=== PATIENT | female | born 1965 ===

== ENCOUNTER 2016-12-14 14:06 | Emergency (ER) | payer MEDICAID ==
[2016-12-14 14:06] VITALS: BMI 34.2
[2016-12-14 14:33] VITALS: BP 124/77; PULSE 85; RESP 16; TEMP 98.2; O2SAT 100
[2016-12-14] MEDS ORDERED: Albuterol-Ipratrop 3 mg / 0.5 (3 ml) UD INH STA (15:01)
--- NOTE | 2016-12-14 15:09 | ED PDOC ---
HPI: CCC, URI, Sore Throat Time Seen by Provider: 12/14/16 15:00 Chief Complaint (Nursing): Cough, Cold, Congestion Chief Complaint (Provider): Cough, Cold, Congestion History Per: Patient History/Exam Limitations: no limitations Onset/Duration Of Symptoms: Days Current Symptoms Are (Timing): Still Present Location Of Pain: None Sick Contacts (Context): None Associated Symptoms: Cough Ear Symptoms: Bilateral: None Severity: Moderate Additional Complaint(s): Patient is a 51 year old female who presents to ED for evaluation of a consistent cough and unrelieved allergy symptoms. Patient notes a chronic history of allergies, taking medication without relief. Also notes history of asthma, but has not had access to her inhaler due to housing complication. Reports that she has been treated for this cough in the past with Promethazine and codeine. Denies chest pain, palpation, fever or neck pain. PMD: Dr. Sargent Past Medical History Reviewed: Historical Data, Nursing Documentation, Vital Signs Vital Signs: Last Vital Signs Temp 98.2 F 12/14/16 14:30 Pulse 85 12/14/16 14:30 Resp 16 12/14/16 14:30 BP 124/77 12/14/16 14:30 Pulse Ox 100 12/14/16 15:30 - Medical History PMH: Anxiety, Asthma (never hospitalized), Back Problems (bulging disc), Bipolar Disorder, Depression, Fractures (right ankle), Gastritis Denies: Diabetes, Hepatitis, Sexually Transmitted Disease - Surgical History Surgical History: Endoscopy - Family History Family History: States: Unknown Family Hx - Social History Current smoker - smoking cessation education provided: Yes - Immunization History Hx Tetanus Toxoid Vaccination: No Hx Influenza Vaccination: No Hx Pneumococcal Vaccination: No - Home Medications Home Medications: Ambulatory Orders Medication Instructions Recorded Alprazolam [Xanax] 0.5 mg PO DAILY PRN 06/04/16 QUEtiapine [SEROquel] 300 mg PO HS 06/04/16 Albuterol HFA [Ventolin HFA 90 1 puff IH QID PRN #1 puff 10/05/16 mcg/actuation (8 g)] Divalproex [Depakote ER] 500 mg PO BID 10/05/16 predniSONE [predniSONE Tab] 1 tab PO DAILY 11/29/16 traMADol [Ultram] 50 mg PO Q8 PRN #10 tab 11/29/16 valACYclovir [Valtrex] 1 tab PO Q8 11/29/16 Albuterol HFA [Ventolin HFA 90 2 puff IH [id number] PRN #1 inh 12/14/16 mcg/actuation (8 g)] Cetirizine HCl [Zyrtec] 10 mg PO DAILY #15 capsule 12/14/16 Fluticasone Propionate [Flonase] 2 spr IN DAILY #1 bottle 12/14/16 Promethazine/Codeine 5 ml PO Q12 PRN #100 ml 12/14/16 [Phenergan/Codeine Oral Syrup] - Allergies Allergies/Adverse Reactions: Allergies Allergy/AdvReac Type Severity Reaction Status Date / Time No Known Allergies Allergy Verified 12/14/16 14:30 Physical Exam - Reviewed Nursing Documentation Reviewed: Yes Vital Signs Reviewed: Yes - Physical Exam Appears: Positive for: Non-toxic, No Acute Distress Skin: Positive for: Normal Color, Warm Eye Exam: Positive for: Normal appearance Neck: Positive for: Normal, Painless ROM Cardiovascular/Chest: Positive for: Regular Rate, Rhythm. Negative for: Murmur Respiratory: Positive for: Rhonchi. Negative for: Wheezing, Respiratory Distress Extremity: Positive for: Normal ROM Neurologic/Psych: Positive for: Alert, Oriented - ECG O2 Sat by Pulse Oximetry: 100 (RA) Pulse Ox Interpretation: Normal Medical Decision Making Medical Decision Making: Time: 1500 Initial Impression: Asthma exacerbation Initial Plan: -- Duoneb x1 Scribe Attestation: Documented by Ashley Esteban, acting as a scribe for Bogdan Allen PA-C. Provider Scribe Attestation: All medical record entries made by the Scribe were at my direction and personally dictated by me. I have reviewed the chart and agree that the record accurately reflects my personal performance of the history, physical exam, medical decision making, and the department course for this patient. I have also personally directed, reviewed, and agree with the discharge instructions and disposition. Disposition - Clinical Impression Clinical Impression: Seasonal allergic rhinitis - Patient ED Disposition Is Patient to be Admitted: No - Disposition Referrals: [facility] [Outside] Disposition Time: 15:45 Condition: FAIR Prescriptions: Albuterol HFA [Ventolin HFA 90 mcg/actuation (8 g)] 2 puff IH [id number] PRN #1 inh PRN Reason: Cough Fluticasone Propionate [Flonase] 2 spr IN DAILY #1 bottle Promethazine/Codeine [Phenergan/Codeine Oral Syrup] 5 ml PO Q12 PRN #100 ml PRN Reason: Cough Cetirizine HCl [Zyrtec] 10 mg PO DAILY #15 capsule Instructions: Allergic Rhinitis (ED), Reactive Airways Disease (ED)
[2016-12-14] MEDS ORDERED: Albuterol-Ipratrop 3 mg / 0.5 (3 ml) UD ONE (15:22)
== END 2016-12-14 16:13 | disposition home or self-care (01) ==
LOC: H.ER 14:06
DX: J30.2 Other seasonal allergic rhinitis (principal); Z87.09 Personal history of other diseases of the respiratory system; F17.200 Nicotine dependence, unspecified, uncomplicated

== ENCOUNTER 2016-12-30 07:46 | Emergency (ER) | payer MEDICAID ==
[2016-12-30 07:46] VITALS: BMI 34.2
[2016-12-30 08:09] VITALS: BP 129/84; PULSE 96; RESP 18; TEMP 97.4; O2SAT 98
--- NOTE | 2016-12-30 09:18 | ED PDOC ---
Lower Extremity Pain/Injury Time Seen by Provider: 12/30/16 09:03 Chief Complaint (Nursing): Lower Extremity Problem/Injury Chief Complaint (Provider): Pain to the toe History Per: Patient History/Exam Limitations: no limitations Onset/Duration Of Symptoms: Days (3) Current Symptoms Are (Timing): Still Present Additional Complaint(s): Pt. with bunion surgery 1 month ago. For 3 days has pain to that R great toe area. No dc. Has numbness, tingles as well in that area. No pain elsewhere. No weakness. No calf pain. No chest pain, dyspnea. No fever. Past Medical History Vital Signs: Last Vital Signs Temp 97.4 F L 12/30/16 08:09 Pulse 96 H 12/30/16 08:09 Resp 18 12/30/16 08:09 BP 129/84 12/30/16 08:09 Pulse Ox 98 12/30/16 08:09 - Medical History PMH: Anxiety, Asthma (never hospitalized), Back Problems (bulging disc), Bipolar Disorder, Depression, Fractures (right ankle), Gastritis Denies: Diabetes, Hepatitis, Sexually Transmitted Disease - Surgical History Surgical History: Endoscopy Other surgeries: bunion surgery - Family History Family History: States: Unknown Family Hx - Social History Current smoker - smoking cessation education provided: No Alcohol: None Drugs: Denies - Immunization History Hx Tetanus Toxoid Vaccination: No Hx Influenza Vaccination: No Hx Pneumococcal Vaccination: No - Home Medications Home Medications: Ambulatory Orders Medication Instructions Recorded Alprazolam [Xanax] 0.5 mg PO DAILY PRN 06/04/16 QUEtiapine [SEROquel] 300 mg PO HS 06/04/16 Albuterol HFA [Ventolin HFA 90 1 puff IH QID PRN #1 puff 10/05/16 mcg/actuation (8 g)] Divalproex [Depakote ER] 500 mg PO BID 10/05/16 predniSONE [predniSONE Tab] 1 tab PO DAILY 11/29/16 traMADol [Ultram] 50 mg PO Q8 PRN #10 tab 11/29/16 valACYclovir [Valtrex] 1 tab PO Q8 11/29/16 Albuterol HFA [Ventolin HFA 90 2 puff IH [id number] PRN #1 inh 12/14/16 mcg/actuation (8 g)] Cetirizine HCl [Zyrtec] 10 mg PO DAILY #15 capsule 12/14/16 Fluticasone Propionate [Flonase] 2 spr IN DAILY #1 bottle 12/14/16 Promethazine/Codeine 5 ml PO Q12 PRN #100 ml 12/14/16 [Phenergan/Codeine Oral Syrup] - Allergies Allergies/Adverse Reactions: Allergies Allergy/AdvReac Type Severity Reaction Status Date / Time No Known Allergies Allergy Verified 12/14/16 14:30 Review of Systems ROS Statement: Except As Marked, All Systems Reviewed And Found Negative Musculoskeletal: Positive for: Foot Pain Physical Exam - Reviewed Nursing Documentation Reviewed: Yes Vital Signs Reviewed: Yes - Physical Exam Appears: Positive for: Non-toxic, No Acute Distress Head Exam: Positive for: ATRAUMATIC, NORMAL INSPECTION, NORMOCEPHALIC Skin: Positive for: Normal Color, Warm, DRY Eye Exam: Positive for: EOMI, Normal appearance, PERRL ENT: Positive for: Normal ENT Inspection Neck: Positive for: Normal, Painless ROM Cardiovascular/Chest: Positive for: Regular Rate, Rhythm Respiratory: Positive for: CNT, Normal Breath Sounds Pulses-Dorsalis Pedis (R): 2+ Back: Positive for: Normal Inspection. Negative for: L CVA Tenderness, R CVA Tenderness Extremity: Positive for: Normal ROM, Other (Tender base of R great toe at lateral area; no sensory deficits; no dc or erythema; surgery scar). Negative for: Pedal Edema, Calf Tenderness Neurologic/Psych: Positive for: Alert, Oriented - ECG O2 Sat by Pulse Oximetry: 98 - Progress ED Course And Treament: 920: Spoke with podiatry. Will see pt. 1054: Podiatry saw pt. Want dc and see Dr. Greenberg today at office. Stable. Pt. agree. 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 Greenberg today without fail. Return if not better in 3 days. Instructions: Swollen Joint (ED) Forms: [facility] ED School/Work Excuse
--- NOTE | 2016-12-30 09:52 | RAD ---
PROCEDURE: Right Foot Radiographs. HISTORY: pain COMPARISON: None. FINDINGS: BONES: Normal. No fracture. JOINTS: Normal. SOFT TISSUES: Normal. OTHER FINDINGS: None. IMPRESSION: No evidence of acute fracture or dislocation.
--- NOTE | 2016-12-30 10:10 | CP.PCM.CON ---
History of Present Illness - History of Present Illness History of Present Illness: PODIATRY CONSULT NOTE DR. BOLAÑOS: This is a 51 yo female pt who presents to ED today complaining of pain/swelling to her right hallux/foot. Pt says that she had bunion surgery 1 month ago w/ Dr. Bolaños, saw him in the office once following surgery and has not followed up since. Pt says she has pain, swelling, and numbness to the right big toe. Rates the pain as a 6/10 currently but walking the pain worsens. Pt says that she does a great deal of walking as she is homeless. Denies taking pain medication, icing or elevating the foot. Denies f/n/v/c/sob/cp. Denies any other complaints at this time. Review of Systems - Review of Systems Review of Systems: All systems reviewed and found to be negative w/ exception of pertinent HPI findings Past Patient History - Infectious Disease Hx of Infectious Diseases: None - Past Medical History & Family History Past Medical History?: Yes - Past Social History Alcohol: None Drugs: Denies - PULMONARY Hx Asthma: Yes (never hospitalized) - HEENT Hx HEENT Problems: No - ENDOCRINE/METABOLIC Hx Endocrine Disorders: No - INTEGUMENTARY Hx Dermatological Problems: No - MUSCULOSKELETAL/RHEUMATOLOGICAL Hx Fractures: Yes (right ankle) - GASTROINTESTINAL Hx Gastritis: Yes - GENITOURINARY/GYNECOLOGICAL Hx Sexually Transmitted Disorders: No - PSYCHIATRIC Hx Anxiety: Yes Hx Bipolar Disorder: Yes Hx Depression: Yes - SURGICAL HISTORY Hx Orthopedic Surgery: Yes (Rt bunionectomy) - ANESTHESIA Hx Anesthesia: Yes Hx Anesthesia Reactions: No Hx Malignant Hyperthermia: No Meds Home Medications: Home Medication List Medication Instructions Recorded Confirmed Type Benzonatate [Tessalon Perles] 100 mg PO BID PRN 5 Days 12/30/16 Rx Allergies/Adverse Reactions: Allergies Allergy/AdvReac Type Severity Reaction Status Date / Time No Known Allergies Allergy Verified 12/14/16 14:30 Physical Exam - Constitutional Appears: Well, Non-toxic, No Acute Distress - Extremities Exam Extremities exam: Negative for: calf tenderness Additional comments: RLE exam: VASC: DP/PT pulses palpable, skin temp runs warm to cool, cap refill < 3 sec to digits x 5, moderate non-pitting edema note do dorsal medial aspect of 1st MTPJ area NEURO: gross pedal sensation is intact DERM: well-healed cicatrix noted to dorsal-medial aspect of hallux along MTPJ, no dehisence, no drainage, no fluctuance, no malodor, no acute sings infection ORTHO: tender to palpation dorsal-medial aspect of 1st MTPJ, tender on 1st MTPJ ROM, pt able to wiggle all toes freely, pedal muscle strength 5/5 in all directions - Neurological Exam Neurological exam: Alert, CN II-XII Intact, Oriented x3 - Psychiatric Exam Psychiatric exam: Normal Affect, Normal Mood Results - Vital Signs Recent Vital Signs: Last Vital Signs Temp 97.4 F L 12/30/16 08:09 Pulse 96 H 12/30/16 08:09 Resp 18 12/30/16 08:09 BP 129/84 12/30/16 08:09 Pulse Ox 98 12/30/16 09:21 Assessment & Plan - Assessment and Plan (Free Text) Assessment: 51 yo female w/ pmh asthma seen in ED w/ painful right 1st metataro-phalangeal joint 1 month s/p bunion surgery Plan: -Pt S&E at bedside in ED -Plan d/w attending Dr. Bolaños -Chart reviewed: DOS 11/10/16 at [facility] -Right foot x-rays: unremarkable -Felton bandage applied, surgical shoe dispensed and applied -Advised pt to ice and elevate foot -F/u w/ surgeon Dr. Bolaños at the office today/tomorrow
== END 2016-12-30 12:22 | disposition home or self-care (01) ==
LOC: H.ER 07:46
DX: M79.671 Pain in right foot (principal); M79.676 Pain in unspecified toe(s); F41.9 Anxiety disorder, unspecified; R05 Cough; J45.909 Unspecified asthma, uncomplicated

== ENCOUNTER 2017-01-10 13:50 | Emergency (ER) | payer MEDICAID ==
[2017-01-10 13:50] VITALS: BMI 34.2
[2017-01-10 14:23] VITALS: BP 113/73; PULSE 91; TEMP 97.8
[2017-01-10] MEDS ORDERED: Albuterol-Ipratrop 3 mg / 0.5 (3 ml) UD ONE ×2 (14:38→14:59)
--- NOTE | 2017-01-10 14:51 | ED PDOC ---
HPI: SOB/CHF/COPD Time Seen by Provider: 01/10/17 14:14 Chief Complaint (Nursing): Shortness Of Breath Chief Complaint (Provider): short of breath History Per: Patient History/Exam Limitations: no limitations Additional Complaint(s): 51yo female comes to the ED complaining of shortness of breath that began while walking today. She is coughing with sputum. She does not have a nebulizer with her because she is in between housing. She also reports having seasonal allergies. Requesting promethazine/codeine syrup. Past Medical History Reviewed: Historical Data, Nursing Documentation, Vital Signs Vital Signs: Last Vital Signs Temp 97.8 F 01/10/17 14:20 Pulse 91 H 01/10/17 14:20 Resp 14 01/10/17 15:08 BP 113/73 01/10/17 14:20 Pulse Ox 98 01/10/17 15:50 - Medical History PMH: Anxiety, Asthma (never hospitalized), Back Problems (bulging disc), Bipolar Disorder, Depression, Fractures (right ankle), Gastritis Denies: Diabetes, Hepatitis, Sexually Transmitted Disease - Surgical History Surgical History: Endoscopy Other surgeries: laparoscopy for ovarian cyst - Family History Family History: States: Other Other Family History: asthma - Social History Current smoker - smoking cessation education provided: Yes - Immunization History Hx Tetanus Toxoid Vaccination: No Hx Influenza Vaccination: No Hx Pneumococcal Vaccination: No - Home Medications Home Medications: Ambulatory Orders Medication Instructions Recorded Alprazolam [Xanax] 0.5 mg PO DAILY PRN 06/04/16 QUEtiapine [SEROquel] 300 mg PO HS 06/04/16 Albuterol HFA [Ventolin HFA 90 1 puff IH QID PRN #1 puff 10/05/16 mcg/actuation (8 g)] Divalproex [Depakote ER] 500 mg PO BID 10/05/16 predniSONE [predniSONE Tab] 1 tab PO DAILY 11/29/16 traMADol [Ultram] 50 mg PO Q8 PRN #10 tab 11/29/16 valACYclovir [Valtrex] 1 tab PO Q8 11/29/16 Albuterol HFA [Ventolin HFA 90 2 puff IH [id number] PRN #1 inh 12/14/16 mcg/actuation (8 g)] Cetirizine HCl [Zyrtec] 10 mg PO DAILY #15 capsule 12/14/16 Fluticasone Propionate [Flonase] 2 spr IN DAILY #1 bottle 12/14/16 Promethazine/Codeine 5 ml PO Q12 PRN #100 ml 12/14/16 [Phenergan/Codeine Oral Syrup] Benzonatate [Tessalon Perles] 100 mg PO BID PRN 5 Days 12/30/16 Albuterol HFA [Ventolin HFA 90 2 puff IH Q4H PRN #1 inh 01/10/17 mcg/actuation (8 g)] Fexofenadine HCl [KathrineNf] 180 mg PO DAILY #30 tab 01/10/17 Fluticasone Propionate [Flonase] 1 spr NS DAILY #1 bot 01/10/17 Montelukast [Singulair] 10 mg PO DAILY #30 tab 01/10/17 Promethazine DM [Phenergan DM 10 ml PO Q6 PRN #120 ml 01/10/17 Syrup] - Allergies Allergies/Adverse Reactions: Allergies Allergy/AdvReac Type Severity Reaction Status Date / Time No Known Allergies Allergy Verified 12/14/16 14:30 Review of Systems ROS Statement: Except As Marked, All Systems Reviewed And Found Negative Respiratory: Positive for: Cough, Shortness of Breath, Sputum Physical Exam - Reviewed Nursing Documentation Reviewed: Yes Vital Signs Reviewed: Yes - Physical Exam Appears: Positive for: Well, Non-toxic Head Exam: Positive for: ATRAUMATIC, NORMAL INSPECTION, NORMOCEPHALIC Skin: Positive for: Warm, Dry Eye Exam: Positive for: EOMI, PERRL Cardiovascular/Chest: Positive for: Regular Rate, Rhythm Respiratory: Positive for: Wheezing (minimal), Respiratory Distress (minimal ) Gastrointestinal/Abdominal: Positive for: Soft. Negative for: Tenderness Extremity: Positive for: Normal ROM - ECG O2 Sat by Pulse Oximetry: 98 (RA) Pulse Ox Interpretation: Normal Medical Decision Making Medical Decision Makin impression asthma exacerbation, allergic rhinitis Plan: 2x duonebs reassess pt requesting rx of promethazine 2 codeine cough syrup. 1500 Patient checked in [place] [employer] [facility], in the past 2 months she's had multiple narcotic medications from at least 4 different providers. At this time, risk of narcotic dependence, addiction or overdose is higher than possible benefit of another narcotic based cough suppressant. Will rx promethazine DM, in addition to asthma /allergy meds. Disposition - Clinical Impression Clinical Impression: Seasonal allergic rhinitis, Asthma Counseled Patient/Family Regarding: Need For Followup, Rx Given - Disposition Referrals: Deyvi Daily MD [Family Provider] - 01/12/17 (FOLLOW UP WITH YOUR DOCTOR IN 1-2 DAYS FOR REEVALUATION) Disposition: Routine/Home Disposition Time: 15:00 Condition: IMPROVED Additional Instructions: BRING YOUR ALBUTEROL WITH YOU WHEREVER YOU GO STOP SMOKING TAKE MEDICATIONS PRESCRIBED Prescriptions: Albuterol HFA [Ventolin HFA 90 mcg/actuation (8 g)] 2 puff IH Q4H PRN #1 inh PRN Reason: ASTHMA Fexofenadine HCl [KathrineNf] 180 mg PO DAILY #30 tab Fluticasone Propionate [Flonase] 1 spr NS DAILY #1 bot Montelukast [Singulair] 10 mg PO DAILY #30 tab Promethazine DM [Phenergan DM Syrup] 10 ml PO Q6 PRN #120 ml PRN Reason: Cough Instructions: Asthma (ED), How to Stop Smoking (ED), Allergic Rhinitis (ED) Additional Comments - Additional Comments Additional Comments: Scribe Attestation: Documented by Wyatt Cabrera acting as a scribe for Whitney Avila MD. Provider Scribe Attestation: All medical record entries made by the Scribe were at my direction and personally dictated by me. I have reviewed the chart and agree that the record accurately reflects my personal performance of the history, physical exam, medical decision making, and the department course for this patient. I have also personally directed, reviewed, and agree with the discharge instructions and disposition.
[2017-01-10] MEDS ORDERED: Albuterol-Ipratrop 3 mg / 0.5 (3 ml) UD INH STA (14:58)
[2017-01-10 15:10] VITALS: RESP 14
[2017-01-10 15:50] VITALS: O2SAT 98
== END 2017-01-10 15:45 | disposition home or self-care (01) ==
LOC: H.ER 13:50
DX: J45.909 Unspecified asthma, uncomplicated (principal); J30.2 Other seasonal allergic rhinitis; R05 Cough; F41.9 Anxiety disorder, unspecified; F17.200 Nicotine dependence, unspecified, uncomplicated